=== PATIENT | male | born 1995 | race Caucasian/White ===

== ENCOUNTER 2018-06-01 09:48 | Outpatient (CLI) | payer BC ==
[2018-06-01 10:29] LABS: MEAN CORPUSCULAR HEMOGLOBIN 30.2 pg (28.0-34.0)
[2018-06-01 10:35] LABS: eGFR (Non-African) > 60
== END 2018-06-01 09:50 ==
LOC: LAB 09:48
PROVIDERS: ATTEND Family Medicine
DX: R55 Syncope and collapse (principal); R73.9 Hyperglycemia, unspecified
CPT/HCPCS: 36415; 80053; 83036; 85027

== ENCOUNTER 2018-06-08 14:49 | Outpatient (CLI) | payer BC | END 2018-06-08 14:51 | LOC: LAB 14:49 | PROVIDERS: ATTEND Family Medicine | DX: K92.1 Melena (principal) | CPT/HCPCS: 82270 ==